=== PATIENT | female | born 1955 | race Caucasian/White ===

== ENCOUNTER → 2017-08-21 | Outpatient (CLI) | payer OTHER | END | disposition home or self-care (01) | LOC: KCIC MRI 10:06 | DX: M51.17 Intervertebral disc disorders with radiculopathy, lumbosacral region (principal); M51.37 Other intervertebral disc degeneration, lumbosacral region | CPT/HCPCS: 72148 ==

== ENCOUNTER → 2017-09-23 | Outpatient (CLI) | payer OTHER ==
[~2017-09-23] MED LIST: BUPIVACAINE MPF 0.25% 10 ML VIAL.; IOHEXOL 180 MG/ML 10 ML VIAL.; methylPREDNISolone ACETATE 80 MG/ML VIAL.
== END | disposition home or self-care (01) ==
LOC: PNCL 09:30
DX: M16.11 Unilateral primary osteoarthritis, right hip (principal); M51.16 Intervertebral disc disorders with radiculopathy, lumbar region; Z88.0 Allergy status to penicillin; I10 Essential (primary) hypertension; E78.00 Pure hypercholesterolemia, unspecified; H91.8X3 Other specified hearing loss, bilateral; Z98.890 Other specified postprocedural states; Z79.899 Other long term (current) drug therapy; Z83.3 Family history of diabetes mellitus; Z82.49 Family history of ischemic heart disease and other diseases of the circulatory system; Z72.89 Other problems related to lifestyle
CPT/HCPCS: 20610; 77002; J1040; J3490; Q9965

== ENCOUNTER → 2018-10-07 | Outpatient (CLI) | payer OTHER ==
[~2018-10-07] MED LIST changes: -BUPIVACAINE MPF 0.25% 10 ML VIAL.; +HYDR50TA6 PO; -IOHEXOL 180 MG/ML 10 ML VIAL.; +SIMV40TA3 PO; -methylPREDNISolone ACETATE 80 MG/ML VIAL.
--- NOTE | 2018-10-07 15:33 | KCIC ---
EXAM: RIGHT UPPER QUADRANT ULTRASOUND. HISTORY: Elevated liver enzymes. COMPARISON: None. FINDINGS: Sonographic evaluation of the right upper quadrant was performed. Mildly increased hepatic parenchymal echogenicity suggests diffuse hepatic steatosis. No focal hepatic lesions are seen. The liver is at least mildly enlarged spanning 17.2 cm. The gallbladder is otherwise unremarkable without evidence of stones, wall thickening or pericholecystic fluid. There is no sonographic [place] sign. The common duct measures 4 mm. Limited images of the visualized portions of the head and body of the pancreas reveal no abnormality. The right kidney measures 11.3 cm. Cortical thickness and echogenicity are preserved. The renal pelvis appears mildly dilated suggesting an extrarenal pelvis. There is no caliectasis. There is moderate atherosclerotic irregularity throughout the visualized abdominal aorta. There is no aneurysm. The inferior vena cava is patent. IMPRESSION: 1. Findings consistent with mild hepatomegaly and diffuse hepatic steatosis. Electronically signed by: Margarito Cano MD (10/07/2018 3:30 PM) [facility]
== END | disposition home or self-care (01) ==
LOC: KCIC US 07:46
PROVIDERS: ATTEND Family Medicine
DX: R94.5 Abnormal results of liver function studies (principal)
CPT/HCPCS: 76705

== ENCOUNTER → 2018-11-09 | Outpatient (CLI) | payer OTHER ==
[~2018-11-09] MED LIST changes: +NADO20TA PO; +OXYC1TAB15 PO; +TRAM50TA PO; +WARF3TAB54 PO
[2018-11-09 09:54] LABS: ALBUMIN 3.9 g/dL (3.4-5.0); CALCIUM 9.4 mg/dL (8.5-10.1); CREATININE 0.8 mg/dL (0.6-1.0); GFR 72.9; POTASSIUM 3.8 mmol/L (3.5-5.1)
[2018-11-09 10:09] LABS: BASO % 1 % (0-3); EOS # 0.1 x10^3/uL (0.0-0.7); EOS % 3 % (0-3); HEMATOCRIT 36.2 % (36.0-47.0); HEMOGLOBIN 12.3 g/dL (12.0-15.5); LYMPH % 26 % (24-48); MEAN CORPUSCULAR HEMOGLOBIN 30 pg (25-35); MEAN CORPUSCULAR HGB CONC 34 g/dL (31-37); MEAN CORPUSCULAR VOLUME 89 fL (79-100); MONO # 0.2 x10^3/uL (0.0-1.1); MONO % 6 % (0-9); NEUT # 2.4 x10^3uL (1.8-7.7); NEUT % 63 % (31-73); PLATELET COUNT 210 x10^3/uL (140-400); RED BLOOD COUNT 4.05 x10^6/uL (3.50-5.40); RED CELL DISTRIBUTION WIDTH 12.7 % (11.5-14.5); WHITE BLOOD COUNT 3.8 x10^3/uL (4.0-11.0)
[2018-11-09 10:20] LABS: PROTHROMBIN TIME PATIENT 11.9 SEC (11.7-14.0)
[2018-11-09 13:35] LABS: BILIRUBIN,URINE NEGATIVE (NEG); CLARITY,URINE CLEAR; COLOR,URINE YELLOW; NITRITE,URINE NEGATIVE (NEG); PH,URINE 5.5; PROTEIN,URINE NEGATIVE (NEG-TRACE); UROBILINOGEN,URINE 0.2 mg/dL (0.2 mg/dL)
--- NOTE | 2018-11-09 13:40 | EKG ---
[facility] [address] [place] [address] Test Date: 2018-11-09 Test Time: 13:13:49 Pat Name: VLADIMIR FINE Department: Room: Gender: F Installer Technician: : 1955 Requested By: RENNY SUE Order Number: [id number] Reading MD: Chuck Marin MD Measurements Intervals [place] Rate: 59 P: 28 MO: 168 QRS: 30 QRSD: 80 T: 31 QT: 394 QTc: 394 Interpretive Statements SINUS RHYTHM Electronically Signed On 11-12-2018 12:55:44 CDT by Chuck Marin MD
[2018-11-09 13:52] LABS: SQUAMOUS EPITHELIAL CELL,UR MOD /LPF
[2018-11-09 13:53] LABS: BACTERIA,URINE 0 /HPF (0-FEW); RBC,URINE 0 /HPF (0-2)
--- NOTE | 2018-11-09 16:27 | RAD ---
AP and Lateral Views of the Chest 11/09/2018 1:51 PM Indication: Hypertension Comparison: None Findings: There is no focal consolidation or infiltrate identified. The cardiomediastinal silhouette is within normal limits. There is no evidence of pneumothorax or pleural effusion. Chronic appearing left rib fractures noted. No acute osseous abnormalities are identified. Impression: No evidence of acute cardiopulmonary process. Electronically signed by: Cr Lawler MD (11/09/2018 4:25 PM) [id number]
== END | disposition home or self-care (01) ==
LOC: SURGPAT 13:08
PROVIDERS: ATTEND Orthopaedic Surgery
DX: Z01.818 Encounter for other preprocedural examination (principal); M16.31 Unilateral osteoarthritis resulting from hip dysplasia, right hip; I10 Essential (primary) hypertension; Z88.0 Allergy status to penicillin
CPT/HCPCS: 36415; 71046; 80048; 81001; 82040; 85025; 85610; 85651; 85730; 87641; 93005

== ENCOUNTER → 2020-04-20 | Outpatient (CLI) | payer OTHER ==
[2018-11-20 08:14] VITALS: BP 95/60
[~2020-04-20] MED LIST changes: +GADOTERATE 7.5 MMOL/15ML VIAL. IVP ONE; +HYDR-2145 PO; -NADO20TA PO; +NADO20TA2 PO; +SIMV40TA18 PO; -SIMV40TA3 PO
--- NOTE | 2020-04-20 13:14 | KCIC ---
EXAM: Brain MRI with and without contrast. HISTORY: Ocular migraine. TECHNIQUE: Multiplanar, multisequence magnetic resonance imaging of the brain was performed prior to and following the administration of intravenous contrast. COMPARISON: None. FINDINGS: There is no restricted diffusion to suggest acute or subacute infarction. There is no susce ptibility effect to suggest hemorrhage. There is no mass effect or midline shift. There is no hydroce phalus. There is mild cerebral volume loss. There are scattered focal areas of T2 such FLAIR hyperint ensity within the cerebral white matter and maria [place] and right cerebellum, a nonspecific finding. There i s a suspected small chronic lacunar infarct within the left thalamus. The orbits, paranasal sinuses mastoid air cells are unremarkable. There is a hypoplastic distal right vertebral artery, a normal variant. There are normal flow voids within the cerebral vessels. There i s no suspicious calvarial lesion. There is no suspicious enhancing lesion. IMPRESSION: 1. No acute intracranial finding. 2. Scattered foci of signal change within the cerebral white matter, maria eug[place] and right cerebellum, a no nspecific finding. This is most commonly due to chronic small vessel disease in patients of this age. However, given the configuration and location of several lesions, the possibility of changes due to chronic demyelination is not completely excluded. There may also be superimposed foci of signal westfall e due to chronic headaches given the reported history. 3. Suspected chronic lacunar infarct within the left thalamus. Electronically signed by: Stella Jane MD (04/20/2020 1:12 PM) [facility]
== END ==
LOC: KCIC MRI 10:03
PROVIDERS: ATTEND Family Medicine
DX: G43.109 Migraine with aura, not intractable, without status migrainosus (principal)
CPT/HCPCS: 70553; A9575